=== PATIENT | male | born 1950 | race Caucasian/White ===

== ENCOUNTER 2021-02-21 11:32 | Outpatient (CLI) | payer OTHER, SELFPAY ==
[2021-02-21] VITALS (10 sets, daily range): BP systolic 166–185; BP diastolic 84–91; PULSE 68–78; RESP 12–16; TEMP 37.1; O2SAT 97–99; BMI 25.9
--- NOTE | 2021-02-21 11:43 | DI.CT.S_ITS ---
PROCEDURE: CT LUMBAR SPINE W CON INDICATIONS: Radiculopathy, lumbar region TECHNIQUE: After the intrathecal administration of 15 mL intrathecal contrast, 3 mm thick sections acquired from T12 to the sacrum. Sagittal and coronal reformats were then constructed. For radiation dose reduction, the following was used: automated exposure control. COMPARISON: [facility], , [place] MYELOGRAM SPINE LUMBOSACRAL, 02/21/2021, 13:28. FINDINGS: Image quality: Excellent. Bones: Spinal alignment is normal. No spondylolysis or spondylolisthesis. No suspicious bony lesions. No acute fractures. Acute body height is preserved. There is degenerative retrolisthesis at L2-3 and L3-4, grade 1 Soft tissues: No retroperitoneal masses. Focal infrarenal distal abdominal aortic aneurysm measures 3.2 cm in diameter. T12-L1: Mild disc space narrowing and circumferential disc bulge without central or foraminal stenosis. L1-L2: Severe disc space narrowing with endplate sclerosis and circumferential disc bulge results in mild central stenosis appearance effacement of both lateral recesses and severe left foraminal stenosis. Moderate right foraminal stenosis present as well. L2-L3: Severe disc space narrowing, endplate sclerosis and circumferential disc bulge results in moderate central stenosis and effacement of both lateral recesses. There is severe right and left foraminal stenosis, left greater than right. L3-L4: Severe disc space narrowing with vacuum disc phenomena and circumferential disc bulge present with upper trophic facet joints resulting in moderate central stenosis. There is severe right and left foraminal stenosis. L4-L5: Moderate disc space narrowing with vacuum disc phenomena and moderate central stenosis combines with hypertrophic facet joints to result in effacement of both lateral recesses as well as severe bilateral foraminal stenosis. L5-S1: Moderate disc space narrowing and circumferential disc bulge present with hypertrophic facet joints resulting in mild central stenosis. Severe bilateral foraminal stenosis. IMPRESSION: 1. Multilevel degenerative disc disease and arthropathy resulting in varying degrees of central and foraminal stenosis including moderate central stenosis at L3-4 and severe bilateral foraminal stenosis at L2-3, L4-5 and L5-S1 2. Incidental focal infrarenal abdominal aortic aneurysm, 3.2 cm Approved by: Diego Mazariegos M.D. on 02/21/2021 at 15:26
--- NOTE | 2021-02-21 11:43 | DI.RAD.S_ITS ---
PROCEDURE: [place] MYELOGRAM SPINE LUMBOSACRAL INDICATIONS: Radiculopathy, lumbar region COMPARISON: [facility], [place], CT LUMBAR SPINE W CON, 02/21/2021, 14:16. TECHNIQUE: The indications, alternatives, benefits, risks and complications of the procedure were explained to the patient. Written informed consent was obtained and placed in the chart. The patient was placed in a prone position on the fluoroscopy table, and a level was chosen for percutaneous access under fluoroscopic guidance. The skin was prepped and draped in a sterile fashion. After local anaesthetic, a spinal needle was then used to enter the intrathecal space, with return of clear cerebrospinal fluid. 15 mL of Isovue M-200 were administered intrathecally under fluoroscopic visualization. The needle was then withdrawn, and a bandage applied to the puncture site. Fluoroscopic spot films were then acquired in various positions. FINDINGS: Standing frontal, lateral, and oblique views demonstrate no significant central canal stenoses. Access level: Right paramedian L4 interlaminar notch level. Medications: 1% lidocaine for local anaesthesia. Complications: None. Patient was transferred to CT for subsequent CT myelogram. IMPRESSION: Successful fluoroscopically guided administration of iodinated contrast into the lumbar spine central canal for CT myelogram. Dictated by: Aj Muhammad M.D. on 02/21/2021 at 15:34 Approved by: Aj Muhammad M.D. on 02/21/2021 at 15:35
[2021-02-21 12:41] LABS: Hematocrit 43.3 % (41-53); Platelet Count 203 X10^3/uL (150-400)
[2021-02-21 13:00] LABS: INR 0.9 (0.9-1.3); Prothrombin Time 10.5 SECONDS (10.1-12.7)
[2021-02-21 13:03] LABS: PTT Partial Thromboplastin Tim 33 SECONDS (26.4-36.2)
--- NOTE | 2021-02-21 13:22 | SUR.PREOP ---
Pt taken to radiology by Etienne. , Etienne, updated on discharge timeline.
--- NOTE | 2021-02-21 14:37 | SUR.PHASEII ---
Received to Phase II after myelogram. Report from RAN Coates. Pt denies headache, nausea, blurred vision. Pt alert and oriented. , Etienne, updated on timeline.
== END 2021-02-21 16:30 ==
PROVIDERS: Referring Provider Orthopaedic Surgery; Visit Provider Orthopaedic Surgery
DX: M54.16 Radiculopathy, lumbar region (principal)
CPT/HCPCS: 36415; 72132; 72265; 85014; 85049; 85610; 85730